=== PATIENT | female | born 1965 | race Asian ===

== ENCOUNTER 2017-08-30 12:31 | Emergency (ER) | payer MEDICAID ==
[~2017-08-30] VITALS: Ht 160 cm; Wt 49.9 kg
[~2017-08-30 12:31] MED LIST: NKM; NORCO 5-325 TA1 EACH ORAL
[2017-08-30 12:47] VITALS: BP 117/75
--- NOTE | 2017-08-30 13:54 | Emergency Room Report ---
History of Present Illness General Chief Complaint: Flu Like Symptoms Source: Patient Present Illness HPI 51-year-old female presents to the emergency department complaining of 6/10 sore throat, cough, nasal congestion x3 days. Patient also reports body aches for which he took Tylenol one time yesterday and stated she had no relief so she stopped taking it. Pt. reports fullness sensation in the left ear. denies tenderness or discharge. Denies neck pain or stiffness. denies photophobia. Patient states she is up-to-date with vaccinations. Denies CP, Palpitations, LOC, AMS, dizziness, Changes in Vision, Sensation, paresthesias, or a sudden severe headache. Allergies: Coded Allergies: No Known Allergies (Unverified , 03/28/16) Patient History Past Medical History: see triage record Past Surgical History: none Pertinent Family History: none Last Menstrual Period: 2 years ago Now: No Reviewed Nursing Documentation: PMH: Agreed, PSxH: Agreed Nursing Documentation-PMH Past Medical History: No Stated History Review of Systems All Other Systems: negative except mentioned in HPI Physical Exam Vital Signs Date Time Temp Pulse Resp B/P (MAP) Pulse Ox O2 Delivery O2 Flow Rate FiO2 08/30/17 12:47 100.2 16 117/75 97 Room Air 08/30/17 12:47 98 Sp02 EP Interpretation: reviewed, normal General Appearance: no apparent distress, alert, GCS 15, non-toxic Head: normocephalic, atraumatic Eyes: bilateral eye normal inspection, bilateral eye PERRL ENT: hearing grossly normal, normal pharynx, no angioedema, normal voice, TMs + canals normal - increased ear was in the left ear., uvula midline, moist mucus membranes, nasal congestion, pharyngeal erythema Neck: full range of motion, no meningismus, supple/symm/no masses Respiratory: chest non-tender, lungs clear, normal breath sounds, no wheezing, speaking full sentences Cardiovascular #1: regular rate, rhythm, no edema Gastrointestinal: non tender, soft, no rebound Rectal: deferred Genitourinary: normal inspection, no CVA tenderness Musculoskeletal: back normal, gait/station normal, normal range of motion, non- tender Neurologic: alert, oriented x3, responsive, motor strength/tone normal, sensory intact, speech normal Skin: normal color, no rash, warm/dry, well hydrated Lymphatic: no adenopathy Medical Decision Making PA Attestation Dr. Alcantar is my supervising Physician whom patient management has been discussed with. Diagnostic Impression: Primary Impression: URI (upper respiratory infection) Qualified Codes: J06.9 - Acute upper respiratory infection, unspecified; B97.89 - Other viral agents as the cause of diseases classified elsewhere ER Course 51-year-old female presents to the emergency department complaining of 6/10 sore throat, cough, nasal congestion x3 days. Patient also reports body aches for which he took Tylenol one time yesterday and stated she had no relief so she stopped taking it. Pt. reports fullness sensation in the left ear. denies tenderness or discharge. Denies neck pain or stiffness. denies photophobia. Patient states she is up-to-date with vaccinations. Denies CP, Palpitations, LOC, AMS, dizziness, Changes in Vision, Sensation, paresthesias, or a sudden severe headache. Ddx considered but are not limited to URI, pneumonia, PE, strep pharyngitis, meningitis. Vital signs: Pt. is afebrile, the remaining VS are WNL H&PE are most consistent with URI- no meningeal signs, oropharynx is not involved, no evidence of bacterial infection at this time. ORDERS: none required at this time, the diagnosis is clinical ED INTERVENTIONS: None required at this time. --PT. EDUCATION: Discussed antibiotic resistance with inappropriate prescribing of antibiotics for viral illnesses. Discussed signs and symptoms to indicate viral illness versus bacterial illness. DISCHARGE: At this time pt. is stable for d/c to home. Will provide printed patient care instructions, and any necessary prescriptions. Care plan and follow up instructions have been discussed with the patient prior to discharge. Last Vital Signs Date Time Temp Pulse Resp B/P (MAP) Pulse Ox O2 Delivery O2 Flow Rate FiO2 08/30/17 12:51 98 16 Room Air 08/30/17 12:47 100.2 117/75 97 Disposition: HOME, SELF-CARE Condition: Stable Scripts Carbamide Peroxide (DEBROX) 15 Ml Drops 5 DROP LEFT EAR TWICE A DAY for 4 Days, #15 ML 0 Refills Prov: Layla Rangel P.A. 08/30/17 Lidocaine HCl 2% Viscous (Lidocaine HCl 2% Viscous) 100 Ml Solution 15 ML ORAL QID Y for For Pain, #100 ML Prov: Layla Rangel 08/30/17 Acetaminophen* (TYLENOL EXTRA STRENGTH*) 500 Mg Tablet 500 MG ORAL Q8H Y for Prn Headache/Temp > 101, #20 TAB 0 Refills Prov: Layla Rangel 08/30/17 Codeine/Promethazine Hcl* (PROMETHAZINE-CODEINE SYRUP*) 118 Ml Syrup 5 ML ORAL Q6H Y for For Cough, #120 ML 0 Refills Prov: Layla Rangel 08/30/17 Patient Instructions: Upper Respiratory Infection, Adult, [id number] Additional Instructions: Take medications as directed. Follow up with a Primary Care Provider in 3-5 days, even if your symptoms have resolved. --Please review list of primary care clinics, if you do not already have a primary care provider Return sooner to ED if new symptoms occur, or current symptoms become worse. Do not drink alcohol, drive, or operate heavy machinery while taking Cough Syrup as this may cause drowsiness. - Please note that this Emergency Department Report was dictated using [employer] ([employer])healthcare technician technology software, occasionally this can lead to erroneous entry secondary to interpretation by the dictation equipment. Layla Rangel Aug 30, 2017 13:54
[2017-08-30] MEDS ORDERED: DEBROX15 M1 LEFT EAR (13:55)
[2017-08-30] MEDS ORDERED: TYLENOL EXTRA500 MG ORAL (13:55)
[2017-08-30] MEDS ORDERED: PROMETHAZINE-C118 M1 ORAL (13:55)
[2017-08-30] MEDS ORDERED: LIDOCAINE VISC100 ML ORAL (13:55)
[2017-08-30 14:34] VITALS: BP 120/78
== END 2017-08-30 14:36 | disposition home or self-care (01) ==
LOC: EMR 14:02
DX: J06.9 Acute upper respiratory infection, unspecified (principal)
CPT/HCPCS: 99283

== ENCOUNTER 2018-09-20 09:50 | Emergency (ER) | payer MEDICAID ==
[~2018-09-20] VITALS: Ht 160 cm; Wt 49.9 kg
[~2018-09-20 09:50] MED LIST changes: +DEBROX15 M1 LEFT EAR; +LIDOCAINE VISC100 ML ORAL; +PROMETHAZINE-C118 M1 ORAL; +TYLENOL EXTRA500 MG ORAL
[2018-09-20] MEDS ORDERED: MULTIVITAMINS1 EAC2 ORAL (10:09)
[2018-09-20 10:12] VITALS: BP 128/79
--- NOTE | 2018-09-20 10:14 | NUR ---
ED Nurse Note:pt. came with c/o left shoulder arm pain for 1 month
[2018-09-20 11:29] VITALS: BP 117/76
--- NOTE | 2018-09-20 11:31 | NUR ---
ED Nurse Note: Patient is being discharged from medical care. Patient awake, alert, orietned x4. Ambulating with steady gait. D/C instruction given and all questions were answered.
--- NOTE | 2018-09-21 12:58 | Emergency Room Report ---
History of Present Illness General Chief Complaint: Pain Source: Patient Present Illness HPI Patient presents with complaints of discomfort to her left shoulder reports that about a week ago she had a puncture type injury to her Left thumb that appears to be taking longer than usual to heal Nevertheless over the past few days She felt some increased discomfort trying to fully flex the left shoulder upward and feels that Approximately after half the way up the shoulder is limited Denies any muscle spasm denies any neck pain denies any neuropathy denies any chest pain or shortness of breath denies any other trauma Allergies: Coded Allergies: No Known Allergies (Unverified , 03/28/16) Patient History Past Medical History: see triage record Pertinent Family History: none Last Menstrual Period: menopause Reviewed Nursing Documentation: PMH: Agreed; PSxH: Agreed Nursing Documentation-PMH Hx Cardiac Problems: No Hx Hypertension: No Hx Pacemaker: No Hx Asthma: No Hx COPD: No Hx Diabetes: Yes - [place] DM Hx Cancer: No Hx Gastrointestinal Problems: No Hx Dialysis: No History Of Psychiatric Problem: No Hx Neurological Problems: No Hx Cerebrovascular Accident: No Hx Seizures: No Review of Systems All Other Systems: negative except mentioned in HPI Physical Exam Vital Signs Date Time Temp Pulse Resp B/P (MAP) Pulse Ox O2 Delivery O2 Flow Rate FiO2 09/20/18 10:01 98.4 72 16 128/79 98 Room Air Sp02 EP Interpretation: reviewed, normal General Appearance: well appearing, no apparent distress Head: normocephalic, atraumatic Eyes: bilateral eye PERRL, bilateral eye EOMI ENT: normal pharynx Neck: supple Respiratory: lungs clear Cardiovascular #1: regular rate, rhythm, no edema Gastrointestinal: non tender Musculoskeletal: other - Left shoulder after approximately 40 degrees of flexion patient has decreased mobility upward, supination pronation and extension are all intact in the left shoulder Neurologic: alert, oriented x3, responsive Skin: other - Left thumb at the base distally there is evidence of what was a puncture wound with some secondary inflammation and secondary healing Lymphatic: no adenopathy Medical Decision Making Diagnostic Impression: Primary Impression: rotator cuff injury ER Course Patient appears to have presentation consistent with rotator cuff pathology given the exam and findings I do not suspect any correlation with her puncture wound of the thumb Patient is stable for close outpatient follow-up and possible MRI for further investigation Last Vital Signs Date Time Temp Pulse Resp B/P (MAP) Pulse Ox O2 Delivery O2 Flow Rate FiO2 09/20/18 11:29 98.0 54 16 117/76 98 Room Air Status: improved Disposition: HOME, SELF-CARE Condition: Stable Referrals: NON PHYSICIAN (PCP) Patient Instructions: Rotator Cuff Tendinitis, Rotator Cuff Injury Additional Instructions: Patient is provided with the discharge instructions notified to follow up with primary doctor in the next 2-3 days otherwise return to the er with any worsening symptoms. We will likely benefit from MRI imaging for further diagnosis of this pain and injury Please note that this report is being documented using [employer] technology. This can lead to erroneous entry secondary to incorrect interpretation by the dictating instrument. Jeffery Wall DO Sep 21, 2018 12:58
== END 2018-09-20 11:32 | disposition home or self-care (01) ==
LOC: EMR 10:23
DX: S46.002A Unspecified injury of muscle(s) and tendon(s) of the rotator cuff of left shoulder, initial encounter (principal); X58.XXXA Exposure to other specified factors, initial encounter; Y92.9 Unspecified place or not applicable; R73.03 Prediabetes
CPT/HCPCS: 99282

== ENCOUNTER 2019-02-14 22:44 | Emergency (ER) | payer MEDICAID ==
[~2019-02-14] VITALS: Ht 160 cm; Wt 49.0 kg
[~2019-02-14 22:44] MED LIST changes: +MULTIVITAMINS1 EAC2 ORAL
--- NOTE | 2019-02-14 23:01 | NUR ---
ED Nurse Note: Pt arrived ED from home. c/o left ankle pain after fell at home today. Pt is A/O X 4, Vital signs stable at this time, waiting for orders.
[2019-02-15] MEDS ORDERED: TYLENOL EXTRA500 MG ORAL (00:03)
--- NOTE | 2019-02-15 00:06 | NUR ---
ED Nurse Note: Nimesh wrap on L ankle with crutches support.
[2019-02-15 00:10] VITALS: BP 126/79
--- NOTE | 2019-02-15 00:10 | NUR ---
ER DISCHARGE NOTE: Patient is cleared to be discharged per Dr. Quan. X-ray done, Crutches provided. Meds given as ordered. Pt is aox4 on room air with stable vital signs. Pt was given dc and prescription instructions and was able to verbalize understanding. Pt's ID band removed. Pt is able to ambulate well with Crutches and took all belongings. Accompanied by her family.
--- NOTE | 2019-02-15 06:07 | Emergency Room Report ---
History of Present Illness General Chief Complaint: Lower Extremity Injury Source: Patient Present Illness HPI 53-year-old female presents ED complaining of left ankle pain. States that and fell earlier today rolling her ankle while wearing high heels. States that she has pain to her left ankle. Dull, 6 out of 10, nonradiating. Is able to bear weight but with difficulty. No other aggravating relieving factors. Denies any other associated symptoms Allergies: Coded Allergies: No Known Allergies (Unverified , 03/28/16) Patient History Past Medical History: DM Past Surgical History: none Pertinent Family History: none Social History: Denies: smoking, alcohol use, drug use Last Menstrual Period: stop 8 years ago Now: No Immunizations: UTD Reviewed Nursing Documentation: PMH: Agreed; PSxH: Agreed Nursing Documentation-PMH Hx Cardiac Problems: No Hx Hypertension: No Hx Pacemaker: No Hx Asthma: No Hx COPD: No Hx Diabetes: Yes - [place] DM Hx Cancer: No Hx Gastrointestinal Problems: No Hx Dialysis: No Hx Neurological Problems: No Hx Cerebrovascular Accident: No Hx Seizures: No Review of Systems All Other Systems: negative except mentioned in HPI Physical Exam Vital Signs Date Time Temp Pulse Resp B/P (MAP) Pulse Ox O2 Delivery O2 Flow Rate FiO2 02/14/19 22:56 98.2 68 18 126/79 (95) 99 Room Air Sp02 EP Interpretation: reviewed, normal General Appearance: no apparent distress, alert, GCS 15, non-toxic Head: normocephalic, atraumatic Eyes: bilateral eye normal inspection, bilateral eye PERRL ENT: hearing grossly normal, normal pharynx, no angioedema, normal voice Neck: full range of motion, supple/symm/no masses Respiratory: chest non-tender, lungs clear, normal breath sounds, speaking full sentences Cardiovascular #1: regular rate, rhythm, no edema Cardiovascular #2: 2+ carotid (R), 2+ carotid (L), 2+ radial (R), 2+ radial (L) , 2+ dorsalis pedis (R), 2+ dorsalis pedis (L) Gastrointestinal: normal bowel sounds, non tender, soft, non-distended, no guarding, no rebound Rectal: deferred Genitourinary: normal inspection, no CVA tenderness Musculoskeletal: back normal, gait/station normal, normal range of motion, tender - L ankle Neurologic: alert, oriented x3, responsive, motor strength/tone normal, sensory intact, speech normal Psychiatric: judgement/insight normal, memory normal, mood/affect normal, no suicidal/homicidal ideation Reflexes: 3+ bicep (R), 3+ bicep (L), 3+ tricep (R), 3+ tricep (L), 3+ knee (R) , 3+ knee (L) Skin: normal color, no rash, warm/dry, well hydrated Lymphatic: no adenopathy Procedures Splinting Splinting : Consent: Verbal Pre-Made Type: MICHELE wrap Pre-Proc Neuro Vasc Exam: normal Post-Proc Neuro Vasc Exam: normal Patient Tolerated: Well Complications: None Medical Decision Making Diagnostic Impression: Primary Impression: Ankle injury Qualified Codes: S99.912A - Unspecified injury of left ankle, initial encounter ER Course Hospital Course 53-year-old F presents to ED complaining of L ankle pain s/p trip and fall Differential diagnoses include: Fracture, dislocation, sprain, contusion Clinical course Patient placed on stretcher. After initial history and physical, I ordered Xrays of L foot/ankle Xrays prelim read shows no acute fracture/dislocation. placed in michele wrap, given crutches discussed findings with patient. Safe for discharge for close outpatient follow -up. Will provide referrals to Ortho Diagnosis - ankle injury Stable and discharged to home with prescription for tylenol. apply ice, keep elevated. weight bear as tolerated. Followup with PMD/ortho. Return to ED if symptoms recur or worsen Other X-Ray Diagnostic Results Other X-Ray Diagnostic Results #1: X-Ray ordered: L ankle # of Views/Limited Vs Complete: 3 View Indication: Pain EP Interpretation: Yes Interpretation: no dislocation, no soft tissue swelling, no fractures Impression: No acute disease Electronically Signed by: Electronically signed by Haroldo Quan MD Other X-Ray Diagnostic Results #2: X-Ray ordered: L foot # of Views/Limited Vs Complete: 3 View Indication: Pain EP Interpretation: Yes Interpretation: no dislocation, no soft tissue swelling, no fractures Impression: No acute disease Electronically Signed by: Electronically signed by Haroldo Quan MD Last Vital Signs Date Time Temp Pulse Resp B/P (MAP) Pulse Ox O2 Delivery O2 Flow Rate FiO2 02/15/19 00:10 98.2 83 18 126/79 99 Room Air Status: improved Disposition: HOME, SELF-CARE Condition: Stable Scripts Acetaminophen* (TYLENOL EXTRA STRENGTH*) 500 Mg Tablet 500 MG ORAL Q8H PRN for Prn Headache/Temp > 101, #30 TAB 0 Refills Prov: Haroldo Quan MD 02/15/19 Referrals: NON PHYSICIAN (PCP) [facility] Open 24 hour /7 days a week by Appointment Only [address] [facility] [address] [facility] [address] Patient Instructions: Ankle Sprain Haroldo Quan MD Feb 15, 2019 06:07
--- NOTE | 2019-02-15 17:48 | Diagnostic Imaging Report ---
Indication: Left ankle pain Technique: 3 views of the left ankle Comparison: none Findings: No acute fractures. No dislocations. Joint spaces are preserved. Impression: Negative This agrees with the preliminary interpretation provided by the emergency room physician
--- NOTE | 2019-02-15 17:49 | Diagnostic Imaging Report ---
Indication: Pain in left foot after trauma Technique: 3 views left foot Comparison: none Findings: There is some soft tissue swelling over the fifth metatarsal head. No acute fractures. No dislocations. The joint spaces are preserved Impression: Negative This agrees with the preliminary interpretation provided by the emergency room physician
== END 2019-02-15 00:10 | disposition home or self-care (01) ==
LOC: EMR 23:15
DX: S99.912A Unspecified injury of left ankle, initial encounter (principal); W19.XXXA Unspecified fall, initial encounter; Y92.89 Other specified places as the place of occurrence of the external cause; E11.9 Type 2 diabetes mellitus without complications
CPT/HCPCS: 99283